=== PATIENT | female | born 1955 | race Two or more races ===

== ENCOUNTER 2020-03-08 16:34 | Emergency (ER) | payer MEDICARE, OTHER ==
[~2020-03-08] VITALS: Ht 162.6 cm; Wt 72.6 kg
--- NOTE | 2020-03-08 17:07 | NUR ---
BIBDAUGTHER FROM HOME TO ER BED 7. AAOX4. NOT IN RESP DISTRESS. AMBULATORY. CAME IN FOR NOT COUGH, BACK PAIN AND FEVER X 4 DAYS. DENIES BEING AROUND SICK PEOPLE. AWAITING MD FOR EVAL.
--- NOTE | 2020-03-08 17:16 | NUR ---
XRAY AT BEDSIDE.
--- NOTE | 2020-03-08 17:41 | NUR ---
COVID SWAB DONE AND SENT TO LAB
--- NOTE | 2020-03-08 18:29 | NUR ---
Patient discharged to home in stable condition. Written and verbal after care instructions given. Patient verbalizes understanding of instruction. Pt ambulatory with a steady gait
[2020-03-08 18:30] VITALS: BP 137/85
--- NOTE | 2020-03-08 18:30 | NUR ---
DAUGHTER'S PHONE NUMBER: [phone]
--- NOTE | 2020-03-09 12:32 | NUR ---
COVID TEST: POSITIVE CALLED PT & SPOKE TO DAUGHTER LADI, NOTIFIED & PT AWARE. INSTRUCTED TO QUARANTINE SELF FOR 14 DAYS & FOLLOW UP [facility]. IF CONDITION WORSEN TO GO TO NEAREST EMERGENCY ROOM. PT & DAUGHTER ACKNOWLEDGED WITH VERBAL UNDERSTANDING.
== END 2020-03-08 18:31 | disposition home or self-care (01) ==
LOC: ER 16:38
DX: U07.1 COVID-19 (principal)
CPT/HCPCS: 71045-TC; C9803-CS; U0003-CS